=== PATIENT | female | born 1955 | race African-American/Black ===

== ENCOUNTER 2018-02-20 20:01 | Emergency (ER) | payer BC ==
[~2018-02-20] VITALS: Ht 162.6 cm; Wt 68.0 kg
[2018-02-20 20:25] VITALS: BP_SYST 125
[2018-02-20] MEDS ORDERED: IBUPROFEN 600 MG TABLET PO ONE (22:45)
[2018-02-20 22:52] VITALS: BP_SYST 125
== END 2018-02-20 22:52 | disposition home or self-care (01) ==
LOC: SED 20:01
DX: S93.401A Sprain of unspecified ligament of right ankle, initial encounter (principal); E78.00 Pure hypercholesterolemia, unspecified; E11.9 Type 2 diabetes mellitus without complications; I10 Essential (primary) hypertension; Z90.710 Acquired absence of both cervix and uterus; W10.9XXA Fall (on) (from) unspecified stairs and steps, initial encounter; Y93.89 Activity, other specified; Y92.89 Other specified places as the place of occurrence of the external cause; Y99.8 Other external cause status
CPT/HCPCS: 99284

== ENCOUNTER 2018-02-21 10:09 | Emergency (ER) | payer BC ==
[~2018-02-21] VITALS: Ht 162.6 cm; Wt 68.0 kg
[2018-02-21 10:15] VITALS: BP_SYST 138
== END 2018-02-21 11:38 | disposition home or self-care (01) ==
LOC: SED 10:09
DX: S92.901A Unspecified fracture of right foot, initial encounter for closed fracture (principal); E78.00 Pure hypercholesterolemia, unspecified; E11.9 Type 2 diabetes mellitus without complications; I10 Essential (primary) hypertension; X58.XXXA Exposure to other specified factors, initial encounter; Y93.89 Activity, other specified; Y92.89 Other specified places as the place of occurrence of the external cause; Y99.8 Other external cause status
CPT/HCPCS: 99283